=== PATIENT | female | born 1965 ===

== ENCOUNTER 2025-03-22 12:13 | Inpatient (IN) | payer OTHER ==
[~2025-03-22] VITALS: Ht 170.2 cm; Wt 97.5 kg
[2025-03-22] MEDS ORDERED: ZESTRIL10 M1 PO (12:56)
[2025-03-22] MEDS ORDERED: GLIPIZIDE XL10 MG PO (12:57)
[2025-03-22] MEDS ORDERED: INVOKANA300 MG PO (12:57)
[2025-03-22] MEDS ORDERED: SYNTHROID112 MCG PO (12:57)
[2025-03-22] MEDS ORDERED: JANUVIA100 MG PO (12:57)
[2025-03-22] MEDS ORDERED: HORIZANT300 MG PO (12:58)
[2025-03-30] MEDS ORDERED: CEFTRIAXONE SODIUM 2,000 MG VIAL ONE (07:26)
[2025-03-30] MEDS ORDERED: METRONIDAZOLE/SODIUM CHLORIDE 500 MG/100 ML PIGGYBACK IV ONE ×3 (07:26→15:47)
[2025-03-30] MEDS ORDERED: CEFTRIAXONE SODIUM 2,000 MG VIAL IV ONE (10:00)
[2025-03-30] MEDS ORDERED: LIDOCAINE HCL 1%/EPINEPHRINE 20ML VIAL IJ ONE (10:00)
[2025-03-30] MEDS ORDERED: DIBUCAINE 30 GM TUBE RECTAL ONE (10:00)
[2025-03-30] MEDS ORDERED: HEMOSTATIC MATRIX 1 KIT KIT TOP ONE (10:00)
[2025-03-30] MEDS ORDERED: SUGAMMADEX SODIUM 200 MG/2 ML VIAL IV ONE (10:48)
[2025-03-30] MEDS ORDERED: OxyCODONE HCL 5 MG TABLET (ROXICODONE) PO PRN (11:45)
[2025-03-30] MEDS ORDERED: ONDANSETRON HCL 2 MG/ML VIAL IV PRN (11:45)
[2025-03-30] MEDS ORDERED: MORPHINE SULFATE 4 MG/ML CARTRIDGE IV PRN (11:45)
[2025-03-30] MEDS ORDERED: DEXTROSE 50 % IN WATER 0.5 G/ML DISP.SYRIN IV PRN (11:45)
[2025-03-30] MEDS ORDERED: 0.9 % SODIUM CHLORIDE 1,000 ML IV SCH (11:45)
[2025-03-30] MEDS ORDERED: HYOSCYAMINE SULFATE 0.125 MG TAB.SUBL SL SCH (13:00)
[2025-03-30] MEDS ORDERED: ACETAMINOPHEN 500 MG GEL..CAP PO SCH (14:00)
[2025-03-30 15:44] LABS: BUN CREA RATIO 11.0 (7.0-25.0); CREATININE SERUM 0.62 mg/dL (0.55-1.02); GFR 97.86; GLUCOSE FASTING 117.0 mg/dL (65-100); OSMOLALITY SERUM 280.0 MOSM/KG (275-295)
[2025-03-30] MEDS ORDERED: GABAPENTIN 300 MG CAPSULE PO ONE (15:47)
[2025-03-30] MEDS ORDERED: HYOSCYAMINE SULFATE 0.125 MG TAB.SUBL ONE (15:47)
[2025-03-30 15:58] LABS: BASO % 0.3 % (0.1-1.2); EOS # 0.02 (0.04-0.54); EOS % 0.3 % (0.7-7.0); LYMPH # 1.32 (1.18-3.74); LYMPH % 21.6 % (19.3-53.1); MEAN PLATELET VOLUME 8.50 fl (9.4-12.4); MONO # 0.47 (0.24-0.82); MONO % 7.7 % (4.7-12.5); NEUT # 4.26 (1.56-6.13); NEUT % 69.8 % (34.0-71.1); RED CELL DISTRIBUTION WIDTH 12.3 % (11.6-14.4)
[2025-03-30 17:00] VITALS: BP 114/72; O2SAT 97
[2025-03-30] MEDS ORDERED: METRONIDAZOLE/SODIUM CHLORIDE 500 MG/100 ML PIGGYBACK IV SCH (17:00)
[2025-03-30] MEDS ORDERED: GABAPENTIN 300 MG CAPSULE PO SCH (17:00)
[2025-03-30] MEDS ORDERED: FAMOTIDINE/PF 20 MG/2 ML VIAL IV PUSH SCH (21:00)
[2025-03-30] MEDS ORDERED: CELECOXIB 200 MG CAPSULE PO SCH (21:00)
[2025-03-31] MEDS ORDERED: LEVOTHYROXINE SODIUM 112 MCG TABLET PO SCH (06:00)
[2025-03-31 07:19] LABS: BASO % 0.1 % (0.1-1.2); EOS # 0.05 (0.04-0.54); EOS % 0.7 % (0.7-7.0); LYMPH # 1.37 (1.18-3.74); LYMPH % 19.4 % (19.3-53.1); MEAN PLATELET VOLUME 9.10 fl (9.4-12.4); MONO # 0.70 (0.24-0.82); MONO % 9.9 % (4.7-12.5); NEUT # 4.92 (1.56-6.13); NEUT % 69.6 % (34.0-71.1); RED CELL DISTRIBUTION WIDTH 12.5 % (11.6-14.4)
[2025-03-31 07:29] LABS: BUN CREA RATIO 13.0 (7.0-25.0); CREATININE SERUM 0.6 mg/dL (0.55-1.02); GFR 101.63; GLUCOSE FASTING 123.0 mg/dL (65-100); OSMOLALITY SERUM 281.0 MOSM/KG (275-295)
[2025-03-31] MEDS ORDERED: TRAM1TAB98 PO (07:44)
[2025-03-31] MEDS ORDERED: PEPCID AC20 MG PO (07:44)
[2025-03-31] MEDS ORDERED: RECTICARE30 GM TOP (07:45)
[2025-03-31 08:00] VITALS: BP 121/74; O2SAT 96
[2025-03-31] MEDS ORDERED: LISINOPRIL 10 MG TABLET PO SCH (09:00)
[2025-03-31] MEDS ORDERED: ENOXAPARIN SODIUM 40 MG/0.4 ML SYRINGE SUBCUTANEO SCH (17:00)
[2025-04-01] MEDS ORDERED: ENOXAPARIN SODIUM 40 MG/0.4 ML SYRINGE SUBCUTANEO SCH (09:00)
== END 2025-03-31 11:56 | disposition home or self-care (01) | DRG 395 ==
LOC: O/R 03-30 06:00 → SURH 03-30 11:30 → SURG 03-30 14:19
PROVIDERS: ADMIT Surgery; ATTEND Surgery
PROC: 0DJD8ZZ Inspection of Lower Intestinal Tract, Via Natural or Artificial Opening Endoscopic (ICD-10-PCS; 2025-03-30)
PROC: 3E0T3BZ Introduction of Anesthetic Agent into Peripheral Nerves and Plexi, Percutaneous Approach (ICD-10-PCS; 2025-03-30)
PROC: 0DBP8ZZ Excision of Rectum, Via Natural or Artificial Opening Endoscopic (ICD-10-PCS; principal; 2025-03-30 11:30)
DX: D12.8 Benign neoplasm of rectum (principal)
CPT/HCPCS: 0184T; 64430; 45300